=== PATIENT | male | born 1950 | race Caucasian/White ===

== ENCOUNTER 2023-06-24 05:41 | Inpatient (IN) | payer MEDICARE ==
[2023-06-19 09:49] VITALS: BMI 26.2
[2023-06-19 10:41] LABS: Bilirubin Neg (Negative); Blood, Urine Negative (Negative); Clarity Clear (Clear); Glucose, Urine (Dipstick) Normal (Negative); Ketone, Urine Negative (Negative); Leukocyte Negative (Negative); Nitrite Negative (Negative); Protein, Urine (Dipstick) 15 mg/dl (Neg-Trace); Urobilinogen Normal mg/dL (Less than 2)
[2023-06-19 10:53] LABS: #Eosinphils 0.2 10x3/uL (0.0-0.5); #Monocytes 0.4 10x3/uL (0.0-1.1); #Neutrophils 2.4 10x3/uL (1.5-8.4); %Basophils 0.4 % (0.0-2.0); %Eosinophils 3.1 % (0.0-6.0); %Lymphocytes 38.5 % (18.0-47.0); Hematocrit 40.3 % (38.8-50.0); Hemoglobin 14.3 g/dL (13.5-17.5); Mean Corpuscular HGB CONC 35.5 g/dL (32.0-36.0); Mean Corpuscular Hemoglobin 31.5 pg (27.0-33.0); Mean Corpuscular Volume 88.8 fl (81.2-95.1); Mean Platelet Volume 9.4 fl (7.4-10.4); Platelet Count 186 10x3/uL (150-450); RBC Distribution Width 12.5 % (11.5-14.5); Red Blood Cell (RBC) Count 4.54 10x6/uL (4.32-5.72); White Blood Cell (WBC) Count 4.9 10x3/uL (3.5-10.5)
[2023-06-19 11:02] LABS: INR-International Normal Ratio 1.1; Prothrombin Time 11.9 sec (9.5-12.1)
[2023-06-19 11:05] LABS: Anion Gap 13 mmol/L (10-20); BUN (Urea Nitrogen) 21 mg/dL (8.4-25.7); Calc. Creatinine Clearance 0 mL/min (70-130); Calcium 9.3 mg/dL (7.8-10.44); Carbon Dioxide 28 mmol/L (23-31); Chloride 101 mmol/L (98-107); Estimated GFR 85; Glucose 100 mg/dL (83-110); Potassium 3.8 mmol/L (3.5-5.1); Sodium 138 mmol/L (136-145)
[2023-06-24] MEDS ORDERED: Midazolam HCl 2 mg/2 ml Vial ONE (06:04)
[2023-06-24] MEDS ORDERED: Dexmedetomidine 200 MCG/2 ML VIAL ONE (06:04)
[2023-06-24] MEDS ORDERED: fentaNYL PF 100 MCG/2 ML SYRINGE ONE ×2 (06:05→09:24)
[2023-06-24] MEDS ORDERED: Vancomycin (BATCH) 1.5 GM/300 ML BAG ONE (06:10)
[2023-06-24] MEDS ORDERED: Tranexamic Acid 1,000 MG/10 ML VIAL ONE ×2 (06:10→09:53)
[2023-06-24] MEDS ORDERED: Sodium Chloride 0.9% 100 ML ONE ×2 (06:10→06:58)
[2023-06-24] MEDS ORDERED: PROPOFOL 20 ML ONE (06:11)
[2023-06-24] MEDS ORDERED: Bupivacaine PF 0.5% 30 ML VIAL ONE ×2 (06:25→08:40)
[2023-06-24] MEDS ORDERED: CEFAZOLIN 2 GM VIAL ONE (06:58)
[2023-06-24] MEDS ORDERED: Glycopyrrolate 0.2 MG/ML 5 ML SYRINGE ONE (07:22)
[2023-06-24] MEDS ORDERED: Ondansetron PF 4 MG/2 ML Vial ONE (07:28)
[2023-06-24] MEDS ORDERED: Zolpidem Tartrate 5 MG TAB PO PRN ×2 (07:45→09:09)
[2023-06-24] MEDS ORDERED: traMADol HCl 50 MG TAB PO PRN ×2 (07:45)
[2023-06-24] MEDS ORDERED: Ondansetron PF 4 MG/2 ML Vial IVP PRN ×2 (07:45→09:09)
[2023-06-24] MEDS ORDERED: Ropivacaine 0.2% 550 ML 550 ML NERVE BLCK SCH (07:45)
[2023-06-24] MEDS ORDERED: Promethazine HCl 25 MG/ML VIAL IM PRN ×2 (07:45→09:09)
[2023-06-24] MEDS ORDERED: fentaNYL 50 mcg/mL 1 mL Vial SLOW IVP PRN (07:46)
[2023-06-24] MEDS ORDERED: fentaNYL 50 mcg/mL 1 mL Vial ONE (08:42)
[2023-06-24] MEDS ORDERED: diphenhydrAMINE 25 MG CAP PO PRN (09:09)
[2023-06-24] MEDS ORDERED: Acetaminophen 325 MG TAB PO PRN (09:09)
[2023-06-24] MEDS ORDERED: Tranexamic Acid 1,000 MG in Sodium Chloride 0.9% 100 ML IVPB SCH (09:15)
[2023-06-24] MEDS: Sodium Chloride 0.9% 1,000 ML IV SCH (12:06)
[2023-06-24] MEDS: Ketorolac Tromethamine 30 MG (1 mL) VIAL IVP SCH (12:06)
[2023-06-24] MEDS: HYDROcodone/Acetaminophen 10/325 mg Tablet PO PRN (16:13)
[2023-06-24] MEDS: CEFAZOLIN 2 GM in Sodium Chloride 0.9% 100 ML IVPB SCH (16:13)
[2023-06-24] MEDS: Aspirin 81 mg Enteric Coated Tablet PO SCH (20:38)
[2023-06-24] MEDS: Vancomycin (BATCH) 1.5 GM in Premix 1 BAG IVPB SCH (20:38)
[2023-06-24] MEDS: Tamsulosin HCl 0.4 MG CAP PO SCH (20:38)
[2023-06-25 04:22] LABS: Hematocrit 33.2 % (42.0-52.0); Hemoglobin 11.4 g/dL (14.0-18.0); Mean Corpuscular HGB CONC 34.3 g/dL (32.0-36.0); Mean Corpuscular Hemoglobin 31.8 pg (27.0-31.0); Mean Corpuscular Volume 92.7 fl (78.0-98.0); Mean Platelet Volume 9.6 fL (7.4-10.4); Platelet Count 135 10x3/uL (130-400); RBC Distribution Width 12.8 % (11.5-14.5); Red Blood Cell (RBC) Count 3.58 mill/uL (4.70-6.10); White Blood Cell (WBC) Count 6.5 10x3/uL (4.8-10.8)
[2023-06-25] MEDS: Ascorbic Acid 500 mg Chewable Tablet PO SCH (10:30)
[2023-06-25] MEDS: Ferrous Gluconate 324 MG TAB PO SCH (10:30)
[2023-06-25] MEDS: Atorvastatin Calcium 40 MG TAB PO SCH (10:30)
[2023-06-25] MEDS: metFORMIN 500 MG TAB PO SCH (10:30)
[2023-06-25] MEDS: Multivitamin W/ Minerals 1 TAB PO SCH (10:30)
[2023-06-25] MEDS: Senokot S 8.6-50 MG TAB PO SCH (10:31)
[2023-06-25] MEDS: CEFAZOLIN 2 GM in Sodium Chloride 0.9% 100 ML IVPB SCH (11:46)
[2023-06-25] MEDS: HYDROcodone/Acetaminophen 10/325 mg Tablet PO PRN (19:53)
[2023-06-26 04:52] LABS: Hematocrit 30.2 % (42.0-52.0); Hemoglobin 10.3 g/dL (14.0-18.0); Mean Corpuscular HGB CONC 34.1 g/dL (32.0-36.0); Mean Corpuscular Hemoglobin 31.9 pg (27.0-31.0); Mean Corpuscular Volume 93.5 fl (78.0-98.0); Mean Platelet Volume 9.9 fL (7.4-10.4); Platelet Count 118 10x3/uL (130-400); Red Blood Cell (RBC) Count 3.23 mill/uL (4.70-6.10); White Blood Cell (WBC) Count 5.6 10x3/uL (4.8-10.8)
[2023-06-26] MEDS: DEXTROAMPHETAMINE PO SCH (12:09)
[2023-06-26] MEDS: AMPHETAMINE PO SCH (12:09)
[2023-06-26 13:19] VITALS: BP 149/74; TEMP 98.3
[2023-06-26] MEDS ORDERED: CeleCOXIB 100 MG CAP PO SCH (21:00)
== END 2023-06-26 14:20 | disposition home or self-care (01) | DRG 470 ==
LOC: SDC 05:41 → SURG A 09:09 → OBSVTOIN 06-25 15:23
PROVIDERS: ADMIT Orthopaedic Surgery; ATTEND Orthopaedic Surgery
PROC: 0SRC0J9 Replacement of Right Knee Joint with Synthetic Substitute, Cemented, Open Approach (ICD-10-PCS; principal; 2023-06-24)
PROC: 0T9B70Z Drainage of Bladder with Drainage Device, Via Natural or Artificial Opening (ICD-10-PCS; 2023-06-25)
DX: M17.11 Unilateral primary osteoarthritis, right knee (principal); E11.9 Type 2 diabetes mellitus without complications; I10 Essential (primary) hypertension; E78.00 Pure hypercholesterolemia, unspecified; M19.90 Unspecified osteoarthritis, unspecified site; N40.1 Benign prostatic hyperplasia with lower urinary tract symptoms; R33.8 Other retention of urine; Z98.890 Other specified postprocedural states
CPT/HCPCS: 36415; 36416; 51701; 51798; 80048; 81003; 85025; 85027; 85610; 86850; 86900; 86901; 87081; 96365; 96366; 96367; 96375; 96376; A4306; C1713; C1776; G0378; J0665; J1885; J2250; J2405; J2704; J2795; J3010; J3370; J3490; J7050

== ENCOUNTER 2024-02-28 11:03 | Outpatient (CLI) | payer MEDICARE | END 2024-02-28 11:04 | disposition home or self-care (01) | LOC: BICCT 11:03 | PROVIDERS: ATTEND Orthopaedic Surgery | DX: M17.12 Unilateral primary osteoarthritis, left knee (principal) ==

== ENCOUNTER 2024-03-04 08:56 | Outpatient (CLI) | payer MEDICARE ==
[2024-03-04 10:11] LABS: #Basophils 0.04 10x3/uL (0.0-0.2); %Basophils 0.8 % (0.0-1.0); %Eosinophils 3.8 % (0.0-10.0); %Lymphocytes 28.7 % (21.0-51.0); %Monocytes 7.4 % (0.0-10.0); %Neutrophils 58.9 % (42.0-75.0); Hematocrit 42.1 % (42.0-52.0); Hemoglobin 14.6 g/dL (14.0-18.0); Mean Corpuscular HGB CONC 34.7 g/dL (32.0-36.0); Mean Corpuscular Hemoglobin 31.7 pg (27.0-31.0); Mean Corpuscular Volume 91.5 fL (78.0-98.0); Mean Platelet Volume 8.9 fL (7.4-10.4); Platelet Count 174 10x3/uL (130-400)
[2024-03-04 10:24] LABS: INR-International Normal Ratio 1.1; Prothrombin Time 13.9 sec (12.0-14.7)
[2024-03-04 10:26] LABS: Bilirubin Negative (Negative); Blood, Urine Negative (Negative); Clarity Clear (Clear); Glucose, Urine (Dipstick) Normal (Negative); Ketone, Urine Negative (Negative); Leukocyte Negative Leu/uL (Negative); Nitrite Negative (Negative); Protein, Urine (Dipstick) Negative (Neg-Trace); Specific Gravity, Urine 1.022 (1.002-1.036); Urobilinogen Normal mg/dL (Less than 2); pH, Urine 5.5 (5.0-9.0)
[2024-03-04 10:28] LABS: Anion Gap 12 mmol/L (10-20); BUN (Urea Nitrogen) 23 mg/dL (8.4-25.7); Calc. Creatinine Clearance 0 mL/min (70-130); Calcium 9.1 mg/dL (7.8-10.44); Carbon Dioxide 26 mmol/L (23-31); Chloride 104 mmol/L (98-107); Estimated GFR 92; Glucose 118 mg/dL (83-110); Potassium 4.2 mmol/L (3.5-5.1); Sodium 138 mmol/L (136-145)
== END 2024-03-04 08:57 | disposition home or self-care (01) ==
LOC: LABBT 08:56
PROVIDERS: ATTEND Orthopaedic Surgery
DX: Z01.818 Encounter for other preprocedural examination (principal); M17.12 Unilateral primary osteoarthritis, left knee
CPT/HCPCS: 71046; 80048; 81003; 85025; 85610; 87081; 93005; 93010

== ENCOUNTER 2024-03-09 06:39 | Observation (INO) | payer MEDICARE ==
[2024-03-04 09:26] VITALS: BMI 23.0
[2024-03-09] MEDS ORDERED: Vancomycin 1 GM/200 ML (FROZEN) BAG ONE (06:54)
[2024-03-09] MEDS ORDERED: Sodium Chloride 0.9% 100 ML ONE (06:54)
[2024-03-09] MEDS ORDERED: Tranexamic Acid 1,000 MG/10 ML VIAL ONE (06:54)
[2024-03-09] MEDS ORDERED: fentaNYL 50 mcg/mL 1 mL Vial ONE ×2 (08:08→11:48)
[2024-03-09] MEDS ORDERED: Midazolam HCl 2 mg/2 ml Vial ONE (08:09)
[2024-03-09] MEDS ORDERED: Bupivacaine HCl 0.5%/Epinephrine 1:200,000/PF 30 ml Vial ONE (08:25)
[2024-03-09] MEDS ORDERED: Ondansetron PF 4 MG/2 ML Vial IVP PRN ×2 (08:45→11:27)
[2024-03-09] MEDS ORDERED: fentaNYL 50 mcg/mL 1 mL Vial SLOW IVP PRN (08:45)
[2024-03-09] MEDS ORDERED: Promethazine HCl 25 MG/ML VIAL IM PRN ×2 (08:45→11:27)
[2024-03-09] MEDS ORDERED: traMADol HCl 50 MG TAB PO PRN (08:45)
[2024-03-09] MEDS ORDERED: HYDROcodone/Acetaminophen 5/325 mg Tablet PO PRN (08:45)
[2024-03-09] MEDS ORDERED: Ropivacaine 0.2% 550 ML 550 ML NERVE BLCK SCH (08:45)
[2024-03-09] MEDS ORDERED: Bupivacaine PF 0.5% 30 ML VIAL ONE (09:27)
[2024-03-09] MEDS ORDERED: Bupivacaine 0.25% HCL 30 ML VIAL ONE (09:29)
[2024-03-09] MEDS ORDERED: CEFAZOLIN 2 GM VIAL ONE (09:29)
[2024-03-09] MEDS ORDERED: Ondansetron PF 4 MG/2 ML Vial ONE (09:30)
[2024-03-09] MEDS ORDERED: Lidocaine 1% PF 5 ML VIAL ONE (09:30)
[2024-03-09] MEDS ORDERED: fentaNYL PF 100 MCG/2 ML SYRINGE ONE (09:30)
[2024-03-09] MEDS ORDERED: PROPOFOL 20 ML ONE (09:30)
[2024-03-09] MEDS ORDERED: Dexamethasone 20 MG/5 ML VIAL ONE (09:30)
[2024-03-09] MEDS ORDERED: Zolpidem Tartrate 5 MG TAB PO PRN (11:27)
[2024-03-09] MEDS ORDERED: HYDROcodone/Acetaminophen 10/325 mg Tablet PO PRN ×2 (11:27)
[2024-03-09] MEDS ORDERED: diphenhydrAMINE 25 MG CAP PO PRN (11:27)
[2024-03-09] MEDS ORDERED: Acetaminophen 325 MG TAB PO PRN (11:27)
[2024-03-09] MEDS ORDERED: Tranexamic Acid 1,000 MG in Sodium Chloride 0.9% 100 ML IVPB SCH (11:30)
[2024-03-09] MEDS ORDERED: HYDROmorphone 0.5 MG/0.5 ML SYRINGE ONE ×2 (11:55→12:11)
[2024-03-09] MEDS: Ketorolac Tromethamine 30 MG (1 mL) VIAL IVP SCH (12:00)
[2024-03-09] MEDS: Sodium Chloride 0.9% 1,000 ML IV SCH (13:29)
[2024-03-09] MEDS: CEFAZOLIN 2 GM in Sodium Chloride 0.9% 100 ML IVPB SCH (19:41)
[2024-03-09] MEDS: Vancomycin 1.5 GRAM/300 ML BAG 1.5 GM in Premix 1 BAG IVPB SCH (20:51)
[2024-03-09] MEDS: Tamsulosin HCl 0.4 MG CAP PO SCH (20:51)
[2024-03-09] MEDS: traMADol HCl 50 MG TAB PO PRN (20:51)
[2024-03-09] MEDS: Aspirin 81 mg Enteric Coated Tablet PO SCH (20:51)
[2024-03-09] MEDS ORDERED: Dextroamphetamine/Amphetamine [Adderall 20 Mg Tablet] PO SCH (21:00)
[2024-03-10 05:11] LABS: Hematocrit 36.7 % (42.0-52.0); Hemoglobin 12.6 g/dL (14.0-18.0); Mean Corpuscular HGB CONC 34.3 g/dL (32.0-36.0); Mean Corpuscular Hemoglobin 31.2 pg (27.0-31.0); Mean Corpuscular Volume 90.8 fL (78.0-98.0); Mean Platelet Volume 9.3 fL (7.4-10.4); Platelet Count 164 10x3/uL (130-400); Red Blood Cell (RBC) Count 4.04 mill/uL (4.70-6.10)
[2024-03-10] MEDS ORDERED: Dextroamphetamine/Amphetamine [Adderall Xr 30 Mg Capsule] PO SCH (09:00)
[2024-03-10] MEDS: HYDROcodone/Acetaminophen 5/325 mg Tablet PO PRN (10:21)
[2024-03-10] MEDS: Ferrous Gluconate 324 MG TAB PO SCH (10:21)
[2024-03-10] MEDS: Senokot S 8.6-50 MG TAB PO SCH (10:21)
[2024-03-10] MEDS: metFORMIN 500 MG TAB PO SCH (10:21)
[2024-03-10] MEDS: Atorvastatin Calcium 40 MG TAB PO SCH (10:21)
[2024-03-10] MEDS: Multivitamin W/ Minerals 1 TAB PO SCH (10:21)
[2024-03-10 12:11] VITALS: BP 161/70; TEMP 98.7
[2024-03-10] MEDS: FLU (Fluad Triv) TS24-25 (65UP)/MF59C/PF 45 MCG/0.5 ML Syringe IM ONE (12:54)
[2024-03-11] MEDS ORDERED: CeleCOXIB 100 MG CAP PO SCH (21:00)
== END 2024-03-10 12:50 | disposition home health service (06) ==
LOC: SDC 06:39 → SURG B 13:09 → SDC 03-10 09:09 → SURG B 03-10 09:09
PROVIDERS: ADMIT Orthopaedic Surgery; ATTEND Orthopaedic Surgery
PROC: 0SRD0JZ Replacement of Left Knee Joint with Synthetic Substitute, Open Approach (ICD-10-PCS; principal; 2024-03-09)
PROC: 3E0T3BZ Introduction of Anesthetic Agent into Peripheral Nerves and Plexi, Percutaneous Approach (ICD-10-PCS; 2024-03-09)
DX: M17.12 Unilateral primary osteoarthritis, left knee (principal); I10 Essential (primary) hypertension; E11.9 Type 2 diabetes mellitus without complications; E78.00 Pure hypercholesterolemia, unspecified; Z90.89 Acquired absence of other organs; Z96.651 Presence of right artificial knee joint; Z87.891 Personal history of nicotine dependence; Z88.5 Allergy status to narcotic agent; Z88.8 Allergy status to other drugs, medicaments and biological substances; Z79.84 Long term (current) use of oral hypoglycemic drugs; Z79.1 Long term (current) use of non-steroidal anti-inflammatories (NSAID); Z79.899 Other long term (current) drug therapy
CPT/HCPCS: 0055T; 27447; 64448; 36415; 85027; A4306; C1713; C1776; C1889; J0665; J1100; J1885; J2250; J2405; J2704; J2795; J3010; J3370; J3370-JW